=== PATIENT | female | born 1980 | race African-American/Black ===

== ENCOUNTER 2016-11-19 22:52 | Emergency (ER) | payer SELFPAY ==
[~2016-11-19] VITALS: Ht 170.2 cm; Wt 165.0 kg
[~2016-11-19 22:52] MED LIST: AUGM875T PO; LORTA5 PO; METO25CR PO
[2016-11-19 23:01] VITALS: BP 169/74; PULSE 88; RESP 20; TEMP 97.8; O2SAT 97
== END 2016-11-20 00:40 | disposition left against medical advice (07) ==
LOC: NED 22:52
DX: L02.818 Cutaneous abscess of other sites (principal)
CPT/HCPCS: 99281

== ENCOUNTER 2017-06-22 22:26 | Emergency (ER) | payer SELFPAY ==
[~2017-06-22] VITALS: Ht 170.2 cm; Wt 160.0 kg
[2017-06-22 22:27] VITALS: BP 185/89; PULSE 90; RESP 20; TEMP 97.9; O2SAT 99
[2017-06-22 23:12] VITALS: BP 177/88; PULSE 86; RESP 20; TEMP 98.3; O2SAT 97
[2017-06-22] MEDS ORDERED: CLIN1CAP5 PO (23:39)
[2017-06-22] MEDS ORDERED: HYDR-3533 PO (23:39)
--- NOTE | 2017-06-22 23:40 | PD ---
HPI Chief Complaint: Lump, Cyst, Hernia Time Seen by Provider: 23:05 Travel History International Travel<30 days: No Contact w/Intl Traveler<30days: No Traveled to known affect area: No History of Present Illness HPI 37 yo F arrives c/o pain in the posterior neck c/w multiple prior episodes of infected cyst. Operative cystectomy performed years prior helped temporarily. Subjective fever is reported. Neck pain is worse with palpation. Similar prior episodes have responded well to antibiotics. Pain is now constant and can be severe at times. Onset was gradual starting a few days prior. PFSH Past Medical History Anemia: Yes Asthma: Yes Autoimmune Disease: No Cancer: No Cardiovascular Problems: Yes (HTN-RAN OUT OF MEDS FOR A COUPLE WEEKS) Diminished Hearing: No Endocrine: No Genitourinary: No Hypertension: Yes Immune Disorder: No Medical other: Yes (CANCER TO LEFT FOOT) Musculoskeletal: No Neurologic: No Psychiatric: No Reproductive: No Respiratory: Yes (ASTHMA) Influenza Vaccination: Yes ?: Not Past Surgical History Other Surgery: Yes (NECK SURGERY) Social History Alcohol Use: No Tobacco Use: Yes (1 PPD) Substance Use: No Allergies-Medications (Allergen,Severity, Reaction): Coded Allergies: No Known Allergies (Unverified , 06/22/17) Reported Meds & Prescriptions Reported Meds & Active Scripts Active Lortab (Hydrocodone-Acetaminophen) 5-325 Mg Tab 1-2 Tab PO Q6H PRN Clindamycin (Clindamycin HCl) 150 Mg Cap 450 Mg PO Q8HR 14 Days Review of Systems General / Constitutional: Positive: Fever (subjective) Respiratory: No: Cough, Shortness of Breath Skin: Positive Lesions Neurologic: Positive: Weakness Physical Exam Narrative GENERAL: pleasant 37 yo F, mild distress 2/2 pain SKIN: Warm and dry. HEAD: Atraumatic. Normocephalic. NECK: Trachea midline. No JVD. Posterior neck approx midline there is an open tender lesion, somewhat indurated with trace discharge. Normal flexion/extension /rotation. CARDIOVASCULAR: Regular rate and rhythm. RESPIRATORY: No accessory muscle use. Clear to auscultation. Breath sounds equal bilaterally. No stridor. MUSCULOSKELETAL: Extremities without clubbing, cyanosis, or edema. No obvious deformities. NEUROLOGICAL: Awake and alert. No obvious cranial nerve deficits. Motor grossly within normal limits. Five out of 5 muscle strength in the arms and legs. Normal speech. Data Data Last Documented VS HTN observed on VS Orders Orders Clindamycin (Cleocin) (06/22/17 23:45) Acetamin-Hydrocod 325-5 Mg ([place] 5-325 (06/22/17 23:45) MDM Medical Decision Making Medical Screen Exam Complete: Yes Emergency Medical Condition: Yes Medical Record Reviewed: Yes Differential Diagnosis Cellulitis, abscess, cyst, gangrene Narrative Course Cellulitis about the posterior neck related to old cyst with prior surgical resection. Clindamycin script. Return precautions discussed. Diagnosis Primary Impression: Cellulitis Qualified Codes: L03.221 - Cellulitis of neck Referrals: Primary Care Physician 2 days Additional Instructions: You have a choice when it comes to health care, and we are glad that you chose [facility]. Hopefully, we have met your expectations on today's visit. You are welcome to return to [facility] at any time, as we are committed to meeting the health care needs of our community. Med/Other Pt SpecificInfo: Prescription(s) given Scripts Hydrocodone-Acetaminophen (Lortab) 5-325 Mg Tab 1-2 TAB PO Q6H Y for PAIN SCALE 6 TO 10, #12 TAB 0 Refills Prov: Lakhwinder Vazquez MD 06/22/17 Clindamycin (Clindamycin) 150 Mg Cap 450 MG PO Q8HR for Infection for 14 Days, CAP 0 Refills Prov: Lakhwinder Vazquez MD 06/22/17 Disposition: 01 DISCHARGE HOME Condition: Stable Lakhwinder Vazquez MD Jun 22, 2017 23:40
[2017-06-22] MEDS ORDERED: ACETAMINOPHEN/HYDROcodone 325 MG/5 MG TAB PO ONE (23:45)
[2017-06-22] MEDS ORDERED: CLINDAMYCIN 150 MG CAP PO ONE (23:45)
== END 2017-06-22 23:57 | disposition home or self-care (01) ==
LOC: NEPD 22:26
DX: L03.221 Cellulitis of neck (principal)
CPT/HCPCS: 99284

== ENCOUNTER 2017-07-11 21:30 | Observation (INO) | payer SELFPAY ==
[~2017-07-11] VITALS: Ht 170.2 cm; Wt 150.0 kg
[~2017-07-11 21:30] MED LIST changes: -AUGM875T PO; +CLIN1CAP5 PO; +HYDR-3533 PO; -LORTA5 PO; -METO25CR PO
[2017-07-11 21:31] VITALS: BP 217/126; PULSE 96; RESP 28; TEMP 99; O2SAT 100
--- NOTE | 2017-07-11 21:35 | PD ---
Physical Exam Date Seen by Provider: Jul 11, 2017 Time Seen by Provider: 21:32 Data Data Last Documented VS Vital Signs Date Time Temp Pulse Resp B/P (MAP) Pulse Ox O2 Delivery O2 Flow Rate FiO2 07/11/17 21:31 99.0 96 28 217/126 (156) 100 Room Air MDM Supervised Visit with ALONSO: No Narrative Course 37 YO F with complaint of ~1 hour history of SOB and 10/10 CP. Onset at rest. PMH of asthma, untreated HTN. Vitals stable. Patient seen in triage, awaiting priority bed placement. Haydee Bland Jul 11, 2017 21:35
--- NOTE | 2017-07-11 21:43 | PD ---
HPI Chief Complaint: Respiratory Symptoms Time Seen by Provider: 21:43 Travel History International Travel<30 days: No Contact w/Intl Traveler<30days: No Traveled to known affect area: No History of Present Illness HPI 37-year-old female came to the emergency room with history of shortness of breath and chest pain. Patient says this just started a couple hours ago. She ran out of her medications and hence came here. She is supposed to be on blood pressure medication but hasn't taken them for almost a month. She doesn't know the name of her medications either. She doesn't have a primary care these medications from ER to ER. She seems uncomfortable. She was significantly hypertensive when she arrived. [facility] Past Medical History Narrative Medical List of her past medical, surgical, social and family history is reviewed from the nursing note. Anemia: Yes Asthma: Yes Autoimmune Disease: No Cancer: No Cardiovascular Problems: Yes (HTN) Diminished Hearing: No Endocrine: No Genitourinary: No Hypertension: Yes Immune Disorder: No Musculoskeletal: No Neurologic: No Psychiatric: No Reproductive: No Respiratory: Yes (ASTHMA) ?: Not LMP: IRREG Past Surgical History Other Surgery: Yes (NECK SURGERY) Social History Alcohol Use: No Tobacco Use: Yes (1 PPD) Substance Use: No Allergies-Medications (Allergen,Severity, Reaction): Coded Allergies: No Known Allergies (Unverified , 07/11/17) Comments No known drug allergies. Reported Meds & Prescriptions Reported Meds & Active Scripts Active No Active Prescriptions or Reported Medications Narrative Medication List of her home medications reviewed from the nursing note. Review of Systems Except as stated in HPI: all other systems reviewed are Neg Physical Exam Narrative GENERAL: Awake, alert, morbidly obese, significant distress SKIN: Focused skin assessment warm/dry. HEAD: Atraumatic. Normocephalic. EYES: Pupils equal and round. No scleral icterus. No injection or drainage. ENT: No nasal bleeding or discharge. Mucous membranes pink and moist. NECK: Trachea midline. No JVD. CARDIOVASCULAR: Regular rate and rhythm. No murmur appreciated. RESPIRATORY: Shallow respirations, decreased air entry GASTROINTESTINAL: Abdomen soft, non-tender, nondistended. Hepatic and splenic margins not palpable. MUSCULOSKELETAL: No obvious deformities. No clubbing. No cyanosis. No edema. NEUROLOGICAL: Awake and alert. No obvious cranial nerve deficits. Motor grossly within normal limits. Normal speech. PSYCHIATRIC: Appropriate mood and affect; insight and judgment normal. Data Data Last Documented VS Orders Orders Complete Blood Count With Diff (07/11/17 22:27) Basic Metabolic Panel (Bmp) (07/11/17 22:27) B-Type Natriuretic Peptide (07/11/17 22:27) Prothrombin Time / Inr (Pt) (07/11/17 22:27) Magnesium (Mg) (07/11/17 22:27) Troponin I (07/11/17 22:27) Iv Access Insert/Monitor (07/11/17 22:27) Electrocardiogram (07/11/17 22:27) Ecg Monitoring (07/11/17 22:27) Oximetry (07/11/17 22:) Oxygen Administration (07/11/17 22:27) Chest, Single Ap (07/11/17 22:27) Sodium Chloride 0.9% Flush (Ns Flush) (07/11/17 22:30) Methylprednisolone So Succ Inj (Solumedr (07/11/17 22:30) Albuterol-Ipratropium Neb (Duoneb Neb) (07/11/17 22:30) Nitroglycerin 2% Oint (Nitroglycerin 2% (07/11/17 22:45) Aspirin Chew (Aspirin Chew) (07/11/17 22:45) Admit Order (Ed Use Only) (07/11/17 23:34) Labs Laboratory Tests Test 07/11/17 22:40 White Blood Count 13.7 TH/MM3 Red Blood Count 4.97 MIL/MM3 Hemoglobin 10.5 GM/DL Hematocrit 33.9 % Mean Corpuscular Volume 68.2 FL Mean Corpuscular Hemoglobin 21.2 PG Mean Corpuscular Hemoglobin Concent 31.1 % Red Cell Distribution Width 19.4 % Platelet Count 364 TH/MM3 Mean Platelet Volume 7.8 FL Neutrophils (%) (Auto) 57.0 % Lymphocytes (%) (Auto) 33.6 % Monocytes (%) (Auto) 5.4 % Eosinophils (%) (Auto) 3.6 % Basophils (%) (Auto) 0.4 % Neutrophils # (Auto) 7.8 TH/MM3 Lymphocytes # (Auto) 4.6 TH/MM3 Monocytes # (Auto) 0.7 TH/MM3 Eosinophils # (Auto) 0.5 TH/MM3 Basophils # (Auto) 0.0 TH/MM3 CBC Comment DIFF FINAL Differential Comment Prothrombin Time 10.4 SEC Prothromb Time International Ratio 0.9 RATIO Blood Urea Nitrogen 10 MG/DL Creatinine 0.87 MG/DL Random Glucose 90 MG/DL Calcium Level 8.4 MG/DL Magnesium Level 2.3 MG/DL Sodium Level 138 MEQ/L Potassium Level 3.9 MEQ/L Chloride Level 101 MEQ/L Carbon Dioxide Level 29.1 MEQ/L Anion Gap 8 MEQ/L Estimat Glomerular Filtration Rate 88 ML/MIN Troponin I LESS THAN 0.02 NG/ML B-Type Natriuretic Peptide 8 PG/ML MDM Medical Decision Making Medical Screen Exam Complete: Yes Emergency Medical Condition: Yes Medical Record Reviewed: Yes Interpretation(s) Twelve-lead EKG was reviewed by me. Normal sinus rhythm, normal axis, nonspecific ST-T wave changes. Heart rate of 87 bpm. Differential Diagnosis Status asthmaticus, hypertensive emergency, flash pulmonary edema, ACS Narrative Course 10:44 PM awaiting for the blood test result. Patient was given 2 inch of Nitropaste and 2 duo nebs. I'll give her 2 baby aspirin as well. 11:35 PM blood test results of back and patient is slightly anemic. Troponin and BNP are within acceptable limit. Chest x-ray shows cardiomegaly. Patient will need to be ruled out for ACS. I explained to her the risks of leaving without getting a proper rule out for ACS given her risk factors namely uncontrolled hypertension with noncompliance, morbid obesity and smoking. Patient understands and is willing to stay in the chest pain center. Procedures EKG Prior to Arrival: No Diagnosis Primary Impression: Chest pain Qualified Codes: R07.9 - Chest pain, unspecified Additional Impressions: Hypertension Qualified Codes: I10 - Essential (primary) hypertension Noncompliance with medications Morbid obesity Asthma exacerbation Admitting Information Admitting Physician Requests: Observation Scripts No Active Prescriptions or Reported Meds Zunilda Clancy MD Jul 11, 2017 21:43
[2017-07-11 21:44] VITALS: BP 163/84; PULSE 87; RESP 16; O2SAT 98
[2017-07-11] MEDS ORDERED: methylPREDNISolone SOD SUCC 125 MG/2 ML VIAL IVP ONE (22:30)
[2017-07-11] MEDS ORDERED: SODIUM CHLORIDE 0.9% FLUSH 10 ML FLUSH IVF PRN (22:30)
--- NOTE | 2017-07-11 22:44 | RADRPT ---
EXAM DATE/TIME: 07/11/2017 22:40 [facility] COMPARISON: No previous studies available for comparison. INDICATIONS : Chest pain and shortness of breath. MEDICAL HISTORY : Hypertension. Asthma. Smoker. SURGICAL HISTORY : None. ENCOUNTER: Initial ACUITY: 1 day PAIN SCORE: 10/10 LOCATION: Bilateral chest FINDINGS: Heart is mildly enlarged. Lungs are free of significant congestion or consolidating airspace disease. Osseous structures are intact. CONCLUSION: Mild cardiomegaly No acute cardio pulmonary process. Andrea Zepeda MD on July 11, 2017 at 22:42 Board Certified Radiologist. This report was verified electronically.
[2017-07-11] MEDS: RESP: ALBUTEROL 2.5 MG/IPRATROPIUM 0.5 MG NEB (SCH) INH (22:45)
[2017-07-11] MEDS ORDERED: ASPIRIN 81 MG CHEW TAB CHEW ONE (22:45)
[2017-07-11] MEDS ORDERED: NITROGLYCERIN 2% OINT 1 GM PACKET TOPICAL ONE (22:45)
[2017-07-11 22:47] VITALS: O2SAT 98
[2017-07-11 22:52] LABS: AUTOMATED NEUTROPHIL # 7.8 TH/MM3 (1.8-7.7); BASOPHIL % 0.4 % (0.0-2.0); EOSINOPHIL # 0.5 TH/MM3 (0-0.4); EOSINOPHIL % 3.6 % (0.0-4.0); HEMATOCRIT 33.9 % (35.0-46.0); HEMO FLAGS DIFF FINAL; LYMPH % 33.6 % (9.0-44.0); LYMPHOCYTE # 4.6 TH/MM3 (1.0-4.8); MEAN CELL VOLUME 68.2 FL (80.0-100.0); MEAN CORPUSCULAR HEMOGLOBIN 21.2 PG (27.0-34.0); MEAN CORPUSCULAR HGB CONC 31.1 % (32.0-36.0); MONO % 5.4 % (0.0-8.0); PLATELET COUNT 364 TH/MM3 (150-450); RED BLOOD COUNT 4.97 MIL/MM3 (4.00-5.30); RED CELL DISTRIBUTION WIDTH 19.4 % (11.6-17.2); WHITE BLOOD COUNT 13.7 TH/MM3 (4.0-11.0)
[2017-07-11 23:08] LABS: ANION GAP 8 MEQ/L (5-15); BICARBONATE 29.1 MEQ/L (21.0-32.0); BLOOD UREA NITROGEN 10 MG/DL (7-18); CHLORIDE 101 MEQ/L (98-107); GLOMERULAR FILTRATION RATE 88 ML/MIN (>89); MAGNESIUM 2.3 MG/DL (1.5-2.5); POTASSIUM 3.9 MEQ/L (3.5-5.1); SODIUM (NA) 138 MEQ/L (136-145)
[2017-07-11 23:29] LABS: INTERNATIONAL NORMALIZED RATIO 0.9 RATIO; PROTHROMBIN TIME - PATIENT 10.4 SEC (9.8-11.6)
[2017-07-12] MEDS ORDERED: ACETAMINOPHEN 500 MG CPLT PO PRN (01:00)
[2017-07-12] MEDS ORDERED: SODIUM CHLORIDE 0.9% FLUSH 10 ML FLUSH IV FLUSH PRN (01:00)
[2017-07-12 01:23] VITALS: BP 132/67; PULSE 78; RESP 20; O2SAT 97
[2017-07-12 02:10] LABS: CREATINE KINASE 119 U/L (26-192)
[2017-07-12 02:21] VITALS: BP 141/84; PULSE 78; RESP 20; TEMP 97.9; O2SAT 94
[2017-07-12 02:23] LABS: CKMB 0.7 NG/ML (0.5-3.6)
[2017-07-12 03:30] VITALS: PULSE 82
[2017-07-12 06:07] LABS: CREATINE KINASE 125 U/L (26-192)
[2017-07-12 06:19] LABS: CKMB 0.8 NG/ML (0.5-3.6)
[2017-07-12] MEDS ORDERED: RESP: ALBUTEROL 2.5 MG/IPRATROPIUM 0.5 MG NEB (PRN) INH (08:00)
[2017-07-12] MEDS ORDERED: methylPREDNISolone SOD SUCC 125 MG/2 ML VIAL IV PUSH SCH (08:00)
[2017-07-12 08:04] VITALS: PULSE 73
[2017-07-12 08:07] VITALS: BP 143/88; PULSE 75; RESP 17; TEMP 98.6; O2SAT 95
[2017-07-12 08:11] VITALS: O2SAT 98
[2017-07-12] MEDS ORDERED: RESP: ALBUTEROL 2.5 MG/IPRATROPIUM 0.5 MG NEB (SCH) INH ONE (08:15)
--- NOTE | 2017-07-12 08:27 | HHI.DCPOC ---
Discharge Care Plan Diagnosis: (1) Chest pain (2) Asthma (3) Morbid obesity (4) Tobacco abuse Goals to Promote Your Health * To prevent worsening of your condition and complications * To maintain your health at the optimal level Directions to Meet Your Goals Take your medications as prescribed Follow your dietary instruction Follow activity as directed Keep your appointments as scheduled Take your immunizations and boosters as scheduled If your symptoms worsen call your PCP, if no PCP go to Urgent Care Center or Emergency Room Smoking is Dangerous to Your Health. Avoid second hand smoke Call the 24-hour hour crisis hotline for domestic abuse at [facility] Jul 12, 2017 08:27
[2017-07-12] MEDS ORDERED: SODIUM CHLORIDE 0.9% FLUSH 10 ML FLUSH IV FLUSH SCH (09:00)
--- NOTE | 2017-07-12 09:39 | EKG ---
Date Performed: 07/12/2017 Time Performed: 01:17:26 PTAGE: 37 years EKG: Sinus rhythm Compared to prior tracing no significant change NORMAL ECG PREVIOUS TRACING : 07/11/2017 21.47 DOCTOR: Marquez Ramos Interpretating Date/Time 07/12/2017 09:39:14
--- NOTE | 2017-07-12 09:39 | EKG ---
Date Performed: 07/11/2017 Time Performed: 21:47:27 PTAGE: 37 years EKG: Sinus rhythm NONSPECIFIC T-WAVE ABNORMALITY BORDERLINE ECG NO PREVIOUS TRACING DOCTOR: Marquez Ramos Interpretating Date/Time 07/12/2017 09:39:06
--- NOTE | 2017-07-12 09:40 | EKG ---
Date Performed: 07/12/2017 Time Performed: 04:01:19 PTAGE: 37 years EKG: SINUS BRADYCARDIA WITH MARKED SINUS ARRHYTHMIA NONSPECIFIC T-WAVE ABNORMALITY Compared to p revious tracing, sinus rate is slower BORDERLINE ECG PREVIOUS TRACING : 07/11/2017 23.56 DOCTOR: Marquez Ramos Interpretating Date/Time 07/12/2017 09:39:28
--- NOTE | 2017-07-12 10:24 | MH ---
cc: ARON PÉREZ MD DATE OF ADMISSION: 07/11/2017 CHIEF COMPLAINT: Chest pain, shortness of breath. HISTORY OF PRESENT ILLNESS: The patient is a 37-year-old, morbidly obese young black woman presented after she became very short of breath and developed chest pain walking her dog. On presentation she was found to be severely hypertensive, shortness of breath with wheezing. History reveals that she ran out of her blood pressure medications about a month ago and has not taken them since. Review of her past history indicates there have been problems with noncompliance to medications in the past. Current episode began with wheezing, shortness of breath, and then left-sided chest discomfort which was not associated with radiation, nausea, vomiting or diaphoresis. She presented to the emergency room relatively rapidly. She does have a history of "asthma," is a smoker and continues to smoke to the present. She does not have a primary care physician. PAST MEDICAL HISTORY: Positive for: 1. Anemia. 2. "Asthma." 3. Long history of hypertension, poorly controlled. 4. Continued tobacco abuse. PAST SURGICAL HISTORY: Some vague neck surgery in the past, may have been a sebaceous cyst. SOCIAL HISTORY: She uses no alcohol but does smoke on average a pack per day and some weed. MEDICATIONS: She is totally unaware of her previous blood pressure medication, did not get them filled a month ago and could not provide me with identification of medications. ALLERGIES: Denies. REVIEW OF SYSTEMS: Covered in the HPI. Remaining systems were unremarkable. PHYSICAL EXAMINATION: A very obese black female, currently sitting on the bed, breathing and resting comfortably. She is actually anxious to be discharged. SKIN: Warm and dry. No lesions. HEAD: Normocephalic, atraumatic. EYES: PERRL, EOMI. Conjunctivae are clear. MOUTH: Mucous membranes are moist and well papillated. No lesions. NOSE: Nares intact. NECK: No JVD, masses, nodes or bruits. CHEST: Diminished breath sounds bilaterally but currently no rales, rhonchi or wheezing. CARDIOVASCULAR: PMI cannot be palpated. The rhythm is regular. S1-S2 are audible, no gallop or murmur is noted. ABDOMEN: Massively obese, soft, nontender with no masses palpated. EXTREMITIES: No clubbing, cyanosis or edema. NEUROLOGIC: Good mentation. Motor is briskly intact bilaterally. There are no obvious cranial nerve defects. PSYCHIATRIC: She appears to be intact and normal. ASSESSMENT 1. Hypertension, out of control on presentation, now controlled. 2. Status asthmaticus resolved. 3. Chest pain, probably secondary to her hypertension. PLAN: Blood pressure is now well controlled, her breathing is clear. She is ruled out for ACS. She continues with morbid obesity. This was discussed with the patient and also the need for cessation of tobacco use. She was directed to establish with our outpatient clinic on discharge. She is willing and indicates that she will be doing this. MD IAIN Nelson/PAUL /9:36 AM /10:08 AM
== END 2017-07-12 10:10 | disposition home or self-care (01) ==
LOC: NEPC 21:30 → NEDH 23:36 → NEPFCDU 07-12 01:59
PROVIDERS: ADMIT Internal Medicine Interventional Cardiology; ATTEND Internal Medicine Interventional Cardiology
DX: R07.89 Other chest pain (principal); I10 Essential (primary) hypertension; J45.902 Unspecified asthma with status asthmaticus; R94.31 Abnormal electrocardiogram [ECG] [EKG]; F17.200 Nicotine dependence, unspecified, uncomplicated; D64.9 Anemia, unspecified; E66.01 Morbid (severe) obesity due to excess calories; Z68.43 Body mass index [BMI] 50.0-59.9, adult; Z91.14 Patient's other noncompliance with medication regimen
CPT/HCPCS: 71010; 80048; 82550; 82552; 83735; 83880; 84484; 85025; 85610; 93005; 94640; 94664; 96374; 99285; G0378; J2930

== ENCOUNTER 2017-09-04 21:51 | Emergency (ER) | payer SELFPAY ==
[~2017-09-04] VITALS: Ht 170.2 cm; Wt 140.0 kg
[2017-09-04 21:53] VITALS: BP 185/117; PULSE 105; RESP 18; TEMP 98.3; O2SAT 97
== END 2017-09-04 23:20 | disposition left against medical advice (07) ==
LOC: NETRI 21:51
DX: R21 Rash and other nonspecific skin eruption (principal); Z53.21 Procedure and treatment not carried out due to patient leaving prior to being seen by health care provider
CPT/HCPCS: 99281

== ENCOUNTER 2018-03-10 20:32 | Emergency (ER) | payer SELFPAY | END 2018-03-10 21:36 | disposition left against medical advice (07) | LOC: NED 20:32 | DX: Z03.89 Encounter for observation for other suspected diseases and conditions ruled out (principal) | CPT/HCPCS: 99281 ==